=== PATIENT | female | born 1995 | race Caucasian/White ===

== ENCOUNTER 2017-01-07 20:44 | Emergency (ER) ==
[2017-01-07 20:48] VITALS: BP 106/63; TEMP 98.7; BMI 20.9
[2017-01-07] MEDS ORDERED: SOLU-MEDROL 125 MG IM STA (21:06)
[2017-01-07] MEDS ORDERED: ROBITUSSIN AC SYRUP PO STA (21:06)
[2017-01-07] MEDS ORDERED: DUONEB NEB STA (21:06)
--- NOTE | 2017-01-07 21:21 | ED.PDOC ---
General ED Provider: Dr. ALMA SOMMER Chief Complaint: Cough Stated Complaint: wheezing coughing congestion, sinus running. Time Seen by Physician: 21:19 Mode of Arrival: Walk-In Information Source: Patient Primary Care Provider: KAYLEE CHANCE Nursing and Triage Documentation Reviewed and Agree: Yes Respiratory Complaint Exam - Shortness of Air Complaint/Exam Symptoms Are: Still present Timing: Constant Initial Severity: Moderate Current Severity: Moderate Character: Reports: Dyspnea at rest Aggravating: Reports: Allergens Alleviating: Reports: None Associated Signs and Symptoms: Reports: Cough, Wheezing, Nasal congestion. Denies: Chest pain with cough, Chest pain, Fever, Chills, Diaphoresis, Dizziness , Calf pain, Calf swelling, Edema, Rapid breathing, Labored breathing, Decreased intake History of Healthcare-Acquired Pneumonia: No Pulmonary Embolism Risk Factors: Reports: None Cardiac Risk Factors: Reports: None Pseudomonas Risk Factors: Reports: None Tuberculosis Risk Factors: Reports: None Home Oxygen Use: No Recent Stress Test: No Recent Echo/LV Function: No Respiratory Distress: Mild Stridor Present: No Tracheal Deviation: No Accessory Muscle Use: No Retractions: Not Present Diminished Breath Sounds: Yes Prolonged Expiratory Phase: Yes Differential Diagnoses: Asthma, Pneumonia, Bronchitis Review of Systems - Review Of Systems Constitutional: Reports: No symptoms Eyes: Reports: No symptoms Ears, Nose, Mouth, Throat: Reports: No symptoms Respiratory: Reports: Cough, Short of air Cardiac: Reports: No symptoms GI: Reports: No symptoms : Reports: No symptoms Musculoskeletal: Reports: No symptoms Skin: Reports: No symptoms Neurological: Reports: No symptoms Endocrine: Reports: No symptoms Hematologic/Lymphatic: Reports: No symptoms All Other Systems: Reviewed and Negative Past Medical History - Past Medical History Previously Healthy: Yes Endocrine: Reports: None Cardiovascular: Reports: None Respiratory: Reports: Asthma Hematological: Reports: None Gastrointestinal: Reports: None Genitourinary: Reports: None Neuro/Psych: Reports: None, Anxiety, Depression Musculoskeletal: Reports: Back Pain Cancer: Reports: None Last Menstrual Period: 12/14 - Surgical History General Surgical History: Reports: Unknown - Family History Family History: Reports: Unknown - Social History Smoking Status: Former smoker Hx Substance Use: No Alcohol Screening: None - Immunizations Tetanus Shot up to Date: Yes Physical Exam - Physical Exam Appearance: Ill-appearing Ill-appearing: Mild Eyes: FRANCISCO, EOMI, Conjunctiva clear ENT: Ears normal, Nose normal, Oropharynx normal Respiratory: Breath sounds diminished, Wheezes Cardiovascular: RRR, Pulses normal, No rub, No murmur GI/: Soft, Nontender, No masses, Bowel sounds normal, No Organomegaly Musculoskeletal: Normal strength, ROM intact, No edema, No calf tenderness Skin: Warm, Dry, Normal color Neurological: Sensation intact, Motor intact, Reflexes intact, Cranial nerves intact, Alert, Oriented Psychiatric: Affect appropriate, Mood appropriate Interpretation - Radiology Interpretation Radiology Interpretation By: ED Physician Radiology Results: Negative Exam Interpreted: CXR Re-Evaluation - Re-Evaluation Time of Re-Evaluation: 22:02 Status: Improved Critical Care Note - Critical Care Note Total Time (mins): 0 Course - Course Orders, Labs, Meds: Orders Category Date Time Status NEBULIZER TREATMENT Stat CARDIO 01/07/17 21:07 Completed Cephalexin [Keflex] MEDS 01/07/17 22:04 Stat 500 mg PO ONCE STA Guaifenesin/Codeine Phosphate [Robitussin AC Syrup] MEDS 01/07/17 21:06 Discontinued 10 ml PO ONCE STA Ipratropium/Albuterol Neb [Duoneb] MEDS 01/07/17 21:06 Discontinued 1 vial NEB ONCE STA Methylprednisolone Sod Succ/Pf [Solu-Medrol 125 mg] MEDS 01/07/17 21:06 Discontinued 80 mg IM ONCE STA CHEST, 1V AP ONLY Stat RADS 01/07/17 21:06 Completed Medications Generic Name Dose Route Start Last Admin Trade Name Freq PRN Reason Stop Dose Admin Cephalexin 500 mg 01/07/17 22:04 Keflex PO 01/07/17 22:05 ONCE STA Discontinued Medications Generic Name Dose Route Start Last Admin Trade Name Freq PRN Reason Stop Dose Admin Albuterol/Ipratropium 1 vial 01/07/17 21:06 01/07/17 21:18 Duoneb NEB 01/07/17 21:07 1 vial ONCE STA Administration Guaifenesin/Codeine Phosphate 10 ml 01/07/17 21:06 01/07/17 21:24 Robitussin Ac Syrup PO 01/07/17 21:07 10 ml ONCE STA Administration Methylprednisolone Sodium Succinate 80 mg 01/07/17 21:06 01/07/17 21:25 Solu-Medrol 125 Mg IM 01/07/17 21:07 80 mg ONCE STA Administration Vital Signs: Temp Pulse Resp BP Pulse Ox 01/07/17 20:45 98.7 F 107 H 20 106/63 95 Departure - Departure Time of Disposition: 22:02 Disposition: HOME SELF-CARE Discharge Problem: Asthmatic bronchitis Qualifiers: Asthma severity: mild persistent Asthma complication type: with acute exacerbation Qualifier Code: (J45.31) Mild persistent asthma with (acute) exacerbation Instructions: Bronchospasm (ED) Condition: Stable Pt referred to PMD for follow-up: Yes Additional Instructions: AVOID SMOKE EXPOSURE if not better come back needs f/u with dog sitter Prescriptions: Cephalexin [Keflex] 500 mg PO Q12HR #20 capsule Albuterol Sulfate [Ventolin Hfa] 8 gm IH TID #1 vial Guaifenesin/Codeine Phosphate [Robitussin AC Syrup] 10 ml PO Q6H #1 bottle Methylprednisolone [Medrol Dosepak] 4 mg PO DIRECTED #1 pkg Allergies/Adverse Reactions: Allergies No Known Allergies Allergy (Verified 11/12/16 23:37) Home Medications: Ambulatory Orders Albuterol Sulfate [Proair Hfa] 2 puff IH Q6H PRN #1 inhaler 03/01/16 Sertraline HCl [Zoloft] 150 mg PO DAILY 07/21/16 Diazepam [Valium] 5 mg PO BID 08/06/16 Albuterol Sulfate 0.083% Neb [Albuterol 0.083% Neb] 1 vial NEB RTQ6H #90 vial.neb 08/11/16 Budesonide/Formoterol Fumarate [Symbicort 160-4.5 Mcg Inhaler] 2 puff IH BID 07/13 Tiotropium [place] [Spiriva Respimat] 2 puff IH 1800 11/13/16 Albuterol Sulfate [Ventolin Hfa] 8 gm IH TID #1 vial 01/07/17 Cephalexin [Keflex] 500 mg PO Q12HR #20 capsule 01/07/17 Guaifenesin/Codeine Phosphate [Robitussin AC Syrup] 10 ml PO Q6H #1 bottle 01/07 Methylprednisolone [Medrol Dosepak] 4 mg PO DIRECTED #1 pkg 01/07/17 Disposition Discussed With: Patient
--- NOTE | 2017-01-07 21:50 | DI ---
EXAM: Chest one view HISTORY: Coughing COMPARISON: 11/15/2016 TECHNIQUE: Single view of the chest was performed FINDINGS: The lungs are clear. There is stable ovoid calcification in the mediastinum which has bee n seen on prior CT thorax dated 11/02/2015 from [facility] and described as a parti ally calcified retrosternal mass. There is no pleural effusion or pneumothorax. The heart is berna l in size. The mediastinal contour is normal. There are no acute abnormalities of the bones. IMPRESSION: 1. No acute cardiopulmonary process. 2. Stable calcified retrosternal mass.
[2017-01-07] MEDS ORDERED: KEFLEX PO STA (22:04)
== END 2017-01-07 22:20 | disposition home or self-care (01) ==
LOC: ED 20:44
DX: J45.31 Mild persistent asthma with (acute) exacerbation (principal); Z79.899 Other long term (current) drug therapy
CPT/HCPCS: 94640; 96372; 99283

== ENCOUNTER 2017-01-09 17:21 | Emergency (ER) ==
[2017-01-09 17:26] VITALS: BP 119/76; TEMP 96.7; BMI 19.5
[2017-01-09] MEDS ORDERED: DUONEB NEB STA ×2 (17:39→18:45)
[2017-01-09 18:03] LABS: BASOPHILS # (AUTO) 0.1 K/uL (0-0.2); BASOPHILS % (AUTO) 0.7 % (0.0-3.0); EOSINOPHILS % (AUTO) 12.5 % (0.0-7.0); HEMATOCRIT 45.5 % (37.0-47.0); HEMOGLOBIN 15.3 g/dl (12.0-16.0); IMMATURE GRANULOCYTE % (AUTO) 0.3 % (0.0-5.0); LYMPHOCYTES # (AUTO) 1.9 K/uL (0.60-3.4); LYMPHOCYTES % (AUTO) 25.4 (10.0-50.0); MEAN CORPUSCULAR HEMOGLOBIN 28.4 pg (27.0-31.0); MEAN CORPUSCULAR HGB CONC 33.6 (31.8-35.4); MEAN CORPUSCULAR VOLUME 84.4 fl (81.0-99.0); MONOCYTES # (AUTO) 0.6 K/uL (0.4-2.0); MONOCYTES % (AUTO) 7.7 (0-10); NEUTROPHILS # (AUTO) 4.1 K/ul (2.0-6.9); NEUTROPHILS % (AUTO) 53.4; PLATELET COUNT 214 10^3/uL (140-440); RED BLOOD COUNT 5.39 10^6/ul (4.20-5.40); WHITE BLOOD COUNT 7.63 K/ul (4.6-10.2)
--- NOTE | 2017-01-09 18:09 | ED.PDOC ---
General ED Provider: Dr. MAYNOR HOGUE JR Chief Complaint: Shortness of Air Stated Complaint: HAS BEEN TAKING MEDICATIONS GIVEN TO HER IN THIS ER SINCE TUESDAY...IS OUT OF MEDICATIONS FOR BREATHING BUT STILL HAVING DIFFICULTY BREATHING. [ End ]short of air today 96.7 110 24 97% 119/76. Cephalexin [ Keflex] 500 mg PO Q12HR #20 capsule. Albuterol Sulfate [Ventolin Hfa] 8 gm IH TID #1 vial. Guaifenesin/Codeine Phosphate [Robitussin AC Syrup] 10 ml PO Q6H # 1 bottle. Methylprednisolone [Medrol Dosepak] 4 mg PO DIRECTED #1 pkg Time Seen by Physician: 18:09 Mode of Arrival: Walk-In Information Source: Patient Exam Limitations: No limitations Primary Care Provider: KAYLEE CHANCE Nursing and Triage Documentation Reviewed and Agree: No Review of Systems - Review Of Systems Constitutional: Reports: Fever, Malaise, Weakness Eyes: Reports: No symptoms Ears, Nose, Mouth, Throat: Reports: No symptoms Respiratory: Reports: Cough, Short of air, Wheezing Cardiac: Reports: No symptoms GI: Reports: No symptoms : Reports: No symptoms Musculoskeletal: Reports: No symptoms Skin: Reports: No symptoms Neurological: Reports: No symptoms Endocrine: Reports: No symptoms Hematologic/Lymphatic: Reports: No symptoms All Other Systems: Other Past Medical History - Past Medical History Previously Healthy: Yes Endocrine: Reports: None Cardiovascular: Reports: None Respiratory: Reports: Asthma Hematological: Reports: None Gastrointestinal: Reports: None Genitourinary: Reports: None Neuro/Psych: Reports: None, Anxiety, Depression Musculoskeletal: Reports: Back Pain Cancer: Reports: None Last Menstrual Period: 01/03/17 - Surgical History General Surgical History: Reports: Other (skin graft on right leg), Unknown - Family History Family History: Reports: Unknown - Social History Smoking Status: Former smoker Hx Substance Use: No Alcohol Screening: None - Immunizations Tetanus Shot up to Date: Yes Physical Exam - Physical Exam Appearance: Well-appearing, Thin Ill-appearing: Moderate Pain Distress: Moderate Eyes: FRANCISCO, EOMI, Conjunctiva clear ENT: Ears normal, Nose normal, Oropharynx normal Neck: Supple Respiratory: Breath sounds diminished, Wheezes Cardiovascular: RRR, Pulses normal, No rub, No murmur GI/: Soft, Nontender, No masses, Bowel sounds normal, No Organomegaly Musculoskeletal: Normal strength, ROM intact, No edema, No calf tenderness Skin: Warm, Dry, Normal color Neurological: Sensation intact, Motor intact, Reflexes intact, Cranial nerves intact, Alert, Oriented Psychiatric: Affect appropriate, Mood appropriate Critical Care Note - Critical Care Note Total Time (mins): 5 Course - Course Hematology/Chemistry: 01/09/17 17:55 01/09/17 17:55 Orders, Labs, Meds: Lab Review 01/09/17 17:55 WBC 7.63 RBC 5.39 Hgb 15.3 Hct 45.5 MCV 84.4 MCH 28.4 MCHC 33.6 RDW Coeff of Janae 13.5 Plt Count 214 Immature Gran % (Auto) 0.3 Neut % (Auto) 53.4 Lymph % (Auto) 25.4 [place] % (Auto) 7.7 Eos % (Auto) 12.5 H Baso % (Auto) 0.7 Immature Gran # (Auto) 0.0 Neut # 4.1 Lymph # 1.9 [place] # 0.6 Eos # 1.0 H Baso # 0.1 D-Dimer 0.25 Sodium 142 Potassium 3.8 Chloride 105 Carbon Dioxide 29 Anion Gap 11.8 BUN 9 Creatinine 0.89 Estimated GFR (MDRD) 79.00 BUN/Creatinine Ratio 10.11 Glucose 84 Calcium 9.5 Total Bilirubin 0.63 AST 17 ALT 15 Alkaline Phosphatase 83 Total Protein 6.7 Albumin 3.9 Globulin 2.8 Albumin/Globulin Ratio 1.39 Orders Category Date Time Status NEBULIZER TREATMENT Stat CARDIO 01/09/17 17:39 Completed NEBULIZER TREATMENT Stat CARDIO 01/09/17 18:45 Ordered CBC W/ AUTO DIFF Stat LAB 01/09/17 17:55 Completed COMPREHENSIVE METABOLIC PANEL Stat LAB 01/09/17 17:55 Completed D-DIMER Stat LAB 01/09/17 17:55 Completed Ipratropium/Albuterol Neb [Duoneb] MEDS 01/09/17 17:39 Discontinued 1 vial NEB ONCE STA Ipratropium/Albuterol Neb [Duoneb] MEDS 01/09/17 18:45 Discontinued 1 vial NEB ONCE STA CHEST, 2 VIEWS PA & LAT Stat RADS 01/09/17 17:52 Taken Medications Discontinued Medications Generic Name Dose Route Start Last Admin Trade Name Freq PRN Reason Stop Dose Admin Albuterol/Ipratropium 1 vial 01/09/17 17:39 01/09/17 17:42 Duoneb NEB 01/09/17 17:40 1 vial ONCE STA Administration Albuterol/Ipratropium 1 vial 01/09/17 18:45 Duoneb NEB 01/09/17 18:46 ONCE STA Vital Signs: Temp Pulse Resp BP Pulse Ox 01/09/17 17:21 96.7 F L 110 H 24 119/76 97 Departure - Departure Time of Disposition: 18:53 Disposition: HOME SELF-CARE Discharge Problem: Extrinsic asthma with exacerbation Instructions: Asthma (ED), Reactive Airways Disease (ED), Albuterol (By breathing) Condition: Good Pt referred to PMD for follow-up: Yes Additional Instructions: finish Keflex, if fever , productive cough or increasing shortness of breath switch to Bactrim antibiotic Albuterol one puff four times a day for three days then only as needed prednisone taper- begin at high dose and decrease(if any worsening may resume at effective dose) recheck PMD call in morning for follow up Prescriptions: Sulfamethoxazole/Trimethoprim [Bactrim Ds 800/160 mg] 1 tab PO Q12HR #14 tablet Albuterol Sulfate [Proair Hfa] 2 puff IH Q6H PRN #1 inhaler PRN Reason: Wheezing Prednisone 20 mg PO DIRECTED #50 tablet Allergies/Adverse Reactions: Allergies No Known Allergies Allergy (Verified 11/12/16 23:37) Home Medications: Ambulatory Orders Sertraline HCl [Zoloft] 150 mg PO DAILY 07/21/16 Diazepam [Valium] 5 mg PO BID 08/06/16 Budesonide/Formoterol Fumarate [Symbicort 160-4.5 Mcg Inhaler] 2 puff IH BID 07/13 Tiotropium [place] [Spiriva Respimat] 2 puff IH 1800 11/13/16 Cephalexin [Keflex] 500 mg PO Q12HR #20 capsule 01/07/17 Guaifenesin/Codeine Phosphate [Robitussin AC Syrup] 10 ml PO Q6H #1 bottle 01/07 Albuterol Sulfate [Proair Hfa] 2 puff IH Q6H PRN #1 inhaler 01/09/17 Prednisone 20 mg PO DIRECTED #50 tablet 01/09/17 Sulfamethoxazole/Trimethoprim [Bactrim Ds 800/160 mg] 1 tab PO Q12HR #14 tablet 01/09/17
[2017-01-09 18:22] LABS: ALBUMIN 3.9 g/dL (3.4-5.0); ALBUMIN/GLOBULIN RATIO 1.39; ANION GAP 11.8; BILIRUBIN,TOTAL 0.63 mg/dL (0.00-1.20); BUN/CREATININE RATIO 10.11; CALCIUM 9.5 mg/dL (8.2-10.2); CREATININE 0.89 mg/dL (0.60-1.30); POTASSIUM 3.8 mmol/L (3.5-5.10); TOTAL PROTEIN 6.7 g/dL (6.4-8.2)
--- NOTE | 2017-01-10 03:36 | DI ---
EXAM: Chest, two views, 01/09/2017 HISTORY: Cough and wheezing COMPARISON: 01/07/2017 FINDINGS / IMPRESSION: Cardiomediastinal contours appear within normal limits. No pulmonary consol idation, effusion or pneumothorax No acute cardiopulmonary process.
== END 2017-01-09 19:21 | disposition home or self-care (01) ==
LOC: ED 17:21
DX: J45.901 Unspecified asthma with (acute) exacerbation (principal)
CPT/HCPCS: 36415; 80053; 85025; 85379; 94640; 99283

== ENCOUNTER 2017-01-16 14:36 | Emergency (ER) ==
[2017-01-16 14:41] VITALS: BP 117/76; TEMP 103; BMI 19.4
[2017-01-16 15:45] LABS: BASOPHILS % (AUTO) 0.2 % (0.0-3.0); EOSINOPHILS % (AUTO) 0.2 % (0.0-7.0); HEMATOCRIT 40.5 % (37.0-47.0); HEMOGLOBIN 14.2 g/dl (12.0-16.0); IMMATURE GRANULOCYTE % (AUTO) 0.6 % (0.0-5.0); LYMPHOCYTES # (AUTO) 1.3 K/uL (0.60-3.4); LYMPHOCYTES % (AUTO) 8.2 (10.0-50.0); MEAN CORPUSCULAR HEMOGLOBIN 28.7 pg (27.0-31.0); MEAN CORPUSCULAR HGB CONC 35.1 (31.8-35.4); MONOCYTES # (AUTO) 1.3 K/uL (0.4-2.0); MONOCYTES % (AUTO) 7.8 (0-10); NEUTROPHILS # (AUTO) 13.5 K/ul (2.0-6.9); PLATELET COUNT 256 10^3/uL (140-440); RED BLOOD COUNT 4.94 10^6/ul (4.20-5.40)
[2017-01-16 15:53] LABS: BILIRUBIN,URINE 1+ (NEGATIVE); KETONES,URINE 1+ (NEGATIVE); LEUKOCYTE ESTERASE ,URINE Negative (NEGATIVE); NITRITE,URINE Negative (NEGATIVE); PH,URINE 5.5 (5-9); PROTEIN,URINE 2+ (NEGATIVE); URINE, BLOOD Negative (NEGATIVE)
[2017-01-16 15:56] LABS: ADD URINE MICROSCOPIC YES; BACTERIA,URINE 1+ (NOT PRESENT)
[2017-01-16 16:04] LABS: ALBUMIN 3.3 g/dL (3.4-5.0); ALBUMIN/GLOBULIN RATIO 0.8; ANION GAP 17.4; BILIRUBIN,TOTAL 0.6 mg/dL (0.00-1.20); BUN/CREATININE RATIO 6.81; CALCIUM 9.3 mg/dL (8.2-10.2); CREATININE 0.88 mg/dL (0.60-1.30); POTASSIUM 3.4 mmol/L (3.5-5.10); TOTAL PROTEIN 7.4 g/dL (6.4-8.2)
--- NOTE | 2017-01-16 16:07 | DI ---
EXAM: Two views of the chest. History: Fever and cough. Comparison: Chest radiograph 01/09/2017 Findings: Heart size is normal. Right middle lobe infiltrate. No pleural fluid and no pneumothora x. No acute osseous abnormalities. Impression: Right middle lobe pneumonia.
[2017-01-16 16:09] LABS: FLU INTERNAL QC INTERNAL QC VALID; RAPID FLU A NEGATIVE (NEGATIVE); RAPID FLU B NEGATIVE (NEGATIVE)
[2017-01-16 16:38] LABS: AMYLASE 20 U/L (25-115); LIPASE 10 U/L (8-78)
[2017-01-16] MEDS ORDERED: ROCEPHIN 1 GM in SODIUM CHLORIDE 50 ML IV STA (17:26)
--- NOTE | 2017-01-16 17:26 | ED.PDOC ---
General ED Provider: Dr. FRANCISCA MORAES Chief Complaint: Nausea/Vomiting Stated Complaint: nausea vomiting Time Seen by Physician: 15:00 Mode of Arrival: Walk-In Information Source: Patient Exam Limitations: No limitations Primary Care Provider: KAYLEE CHANCE Nursing and Triage Documentation Reviewed and Agree: Yes Respiratory Complaint Exam - Respiratory Complaint/Exam Onset/Duration: cough flu like symptoms Symptoms Are: Still present Timing: Intermittent Initial Severity: Moderate Current Severity: Mild Location: Throat Character: Reports: Non-productive cough Aggravating: Reports: None Alleviating: Reports: None Associated Signs and Symptoms: Denies: Rapid breathing, Dyspnea, Fever, Chills, Chest pain, Pleuritic chest pain, Wheezing, Hemoptysis, Dizziness, Calf pain, Calf swelling, Edema, URI, Nasal congestion, Hoarseness, Sinus discomfort, Vomiting, Sore throat, Weight loss, Decreased oral intake, Increased thirst, Increased appetite, Increased urination Related History: Reports: Similar episode History of Healthcare-Acquired Pneumonia: No Related Surgical History: Reports: None Pulmonary Embolism Risk Factors: None Cardiac Risk Factors: Reports: None Pseudomonas Risk Factors: Reports: None Tuberculosis Risk Factors: Reports: None Status Asthmaticus Risk Factors: Reports: None Home Oxygen Use: No Recent Stress Test: No Recent Echo/LV Function: No Current Antibiotic Use: No Current Asthma Medication Use: No Respiratory Distress: None Inadequate Respiratory Effort: No Dysphagia Present: No Stridor Present: No JVD Present: No Accessory Muscle Use: No Retractions: Not Present Sinus Tenderness: None Grunting Respirations: No Kussmaul Respirations: No Differential Diagnoses: Pneumonia, Bronchitis Review of Systems - Review Of Systems Constitutional: Reports: Chills, Malaise Eyes: Reports: No symptoms Ears, Nose, Mouth, Throat: Reports: No symptoms Respiratory: Reports: Cough Cardiac: Reports: No symptoms GI: Reports: No symptoms : Reports: No symptoms Musculoskeletal: Reports: No symptoms Skin: Reports: No symptoms Neurological: Reports: No symptoms Endocrine: Reports: No symptoms Hematologic/Lymphatic: Reports: No symptoms All Other Systems: Reviewed and Negative Past Medical History - Past Medical History Previously Healthy: Yes Endocrine: Reports: None Cardiovascular: Reports: None Respiratory: Reports: Asthma Hematological: Reports: None Gastrointestinal: Reports: None Genitourinary: Reports: None Neuro/Psych: Reports: None, Anxiety, Depression Musculoskeletal: Reports: Back Pain Cancer: Reports: None Last Menstrual Period: last week - Surgical History General Surgical History: Reports: Other (skin graft on right leg), Unknown - Family History Family History: Reports: Unknown - Social History Smoking Status: Former smoker Hx Substance Use: No Alcohol Screening: None Physical Exam - Physical Exam Appearance: Well-appearing, No pain distress, Well-nourished Eyes: FRANCISCO, EOMI, Conjunctiva clear ENT: Ears normal, Nose normal, Oropharynx normal Respiratory: Rhonchi Cardiovascular: RRR, Pulses normal, No rub, No murmur GI/: Soft, Nontender, No masses, Bowel sounds normal, No Organomegaly Musculoskeletal: Normal strength, ROM intact, No edema, No calf tenderness Skin: Warm, Dry, Normal color Neurological: Sensation intact, Motor intact, Reflexes intact, Cranial nerves intact, Alert, Oriented Psychiatric: Affect appropriate, Mood appropriate Interpretation - Radiology Interpretation Radiology Interpretation By: Radiologist Radiology Results: Positive (RLLL) Critical Care Note - Critical Care Note Total Time (mins): 0 Course - Course Hematology/Chemistry: 01/16/17 15:30 01/16/17 15:30 Orders, Labs, Meds: Lab Review 01/16/17 01/16/17 15:30 15:45 WBC 16.30 H RBC 4.94 Hgb 14.2 Hct 40.5 MCV 82.0 MCH 28.7 MCHC 35.1 RDW Coeff of Janae 13.0 Plt Count 256 Immature Gran % (Auto) 0.6 Neut % (Auto) 83.0 Lymph % (Auto) 8.2 L [place] % (Auto) 7.8 Eos % (Auto) 0.2 Baso % (Auto) 0.2 Immature Gran # (Auto) 0.1 Neut # 13.5 H Lymph # 1.3 [place] # 1.3 Eos # 0.0 Baso # 0.0 Sodium 135 L Potassium 3.4 L Chloride 100 Carbon Dioxide 21 Anion Gap 17.4 BUN 6 L Creatinine 0.88 Estimated GFR (MDRD) 80.00 BUN/Creatinine Ratio 6.81 Glucose 117 H Calcium 9.3 Total Bilirubin 0.60 AST 14 L ALT 10 L Alkaline Phosphatase 97 Total Protein 7.4 Albumin 3.3 L Globulin 4.1 Albumin/Globulin Ratio 0.80 Amylase 20 L Lipase 10 Urine Color Dark Urine Clarity Clear Urine pH 5.5 Ur Specific [place] 1.025 Urine Protein 2+ Urine Glucose (UA) Trace Urine Ketones 1+ Urine Blood Negative Urine Nitrite Negative Urine Bilirubin 1+ Urine Urobilinogen >=8.0 Ur Leukocyte Esterase Negative Urine Microscopic WBC 0-2 Ur Squamous Epith Cells 5-10 Urine Bacteria 1+ Urine Mucus 2+ Influenza A (Rapid) Negative Influenza B (Rapid) Negative Orders Category Date Time Status AMYLASE Stat LAB 01/16/17 15:30 Completed BLOOD CULTURE Stat LAB 01/16/17 15:30 Received CBC W/ AUTO DIFF Stat LAB 01/16/17 15:30 Completed COMPREHENSIVE METABOLIC PANEL Stat LAB 01/16/17 15:30 Completed LIPASE Stat LAB 01/16/17 15:30 Completed MOLECULAR GROUP A STREP Stat LAB 01/16/17 15:45 Results RAPID FLU A/B Stat LAB 01/16/17 15:45 Completed STREP SCREEN Stat LAB 01/16/17 15:45 Results URINALYSIS C & S IF INDICATED Stat LAB 01/16/17 15:45 Completed URINE CULTURE Stat LAB 01/16/17 15:45 Received CHEST, 2 VIEWS PA & LAT Stat RADS 01/16/17 15:25 Completed Vital Signs: Temp Pulse Resp BP Pulse Ox 01/16/17 14:36 103 F H 122 H 20 117/76 94 L Departure - Departure Time of Disposition: 17:25 Disposition: HOME SELF-CARE Discharge Problem: Nausea, Vomiting, RLL pneumonia Instructions: Pneumonitis (ED) Condition: Good Pt referred to PMD for follow-up: No Additional Instructions: Please call your Family Physician as soon as possible to schedule a follow-up appointment. Allergies/Adverse Reactions: Allergies No Known Allergies Allergy (Verified 01/16/17 14:44) Home Medications: Ambulatory Orders Sertraline HCl [Zoloft] 150 mg PO DAILY 07/21/16 Diazepam [Valium] 5 mg PO BID 08/06/16 Budesonide/Formoterol Fumarate [Symbicort 160-4.5 Mcg Inhaler] 2 puff IH BID 07/13 Tiotropium [place] [Spiriva Respimat] 2 puff IH 1800 11/13/16 Albuterol Sulfate [Proair Hfa] 2 puff IH Q6H PRN #1 inhaler 01/09/17 Transfer Form Completed: Yes Disposition Discussed With: Patient
[2017-01-16] MEDS ORDERED: ROCEPHIN ONE (17:28)
[2017-01-16] MEDS ORDERED: SOLU-MEDROL 125 MG IVP STA (17:30)
[2017-01-16] MEDS ORDERED: SOLU-MEDROL 40 MG ONE (17:31)
[2017-01-16 17:32] LABS: URINE PREGNANCY INTERNAL QC INTERNAL QC VALID
== END 2017-01-16 18:11 | disposition short-term general hospital (02) ==
LOC: ED 14:36
DX: J18.9 Pneumonia, unspecified organism (principal); R11.2 Nausea with vomiting, unspecified; Z79.899 Other long term (current) drug therapy
CPT/HCPCS: 36415; 80053; 81001; 81025; 82150; 83690; 85025; 87040; 87086; 87651; 87804; 87880; 96365; 96375; 99285

== ENCOUNTER 2017-01-16 18:06 | Outpatient (CLI) ==
[2017-01-16 14:41] VITALS: BMI 19.4
== END 2017-01-16 18:07 ==
LOC: AMBL 18:06
PROVIDERS: ATTEND Internal Medicine
DX: J18.9 Pneumonia, unspecified organism (principal); R06.02 Shortness of breath; R00.0 Tachycardia, unspecified

== ENCOUNTER 2017-03-18 16:32 | Outpatient (CLI) | END 2017-03-18 16:33 | LOC: AMBL 16:32 | PROVIDERS: ATTEND Internal Medicine | DX: M54.5 Low back pain (principal); R51 Headache; R06.9 Unspecified abnormalities of breathing; V47.5XXA Car driver injured in collision with fixed or stationary object in traffic accident, initial encounter ==

== ENCOUNTER 2017-04-01 12:14 | Outpatient (CLI) ==
--- NOTE | 2017-04-01 17:26 | MRI ---
EXAM: Brain MRI without contrast. HISTORY: Headache. COMPARISON: Head CT 01/17/[address] 11/02/2015. TECHNIQUE: Multiplanar, multisequence MR images were acquired of the brain without contrast. FINDINGS: The midline structures are central. The right cerebellar tonsil is slightly larger than the left and extends 2.8 mm below the foramen magnum which is within normal variation. The ventricl es and sulci are normal in size and configuration. There are no abnormal extra-axial fluid collecti ons. The brain parenchyma has no diffusion restriction to suggest acute hypoperfusion or infarction. The re are no abnormal T2 hyperintensities or foci of dark gradient echo signal. The corpus callosum is normal in configuration. The pituitary gland is unremarkable. There are no intraorbital masses. A slightly disconjugate gaze is present. There is mild mucosal th ickening in the frontal sinus and minor mucosal thickening scattered in the ethmoid air cells bilate rally. There is a small mucous retention cyst or polyp along the anterior wall of the right maxilla ry sinus. Mild adenoidal hypertrophy is present with a tiny nasopharyngeal submucosal cyst. There i s mild leftward nasal septal deviation with a small left nasal septal spur. Middle ears and mastoid s are unremarkable. Flow voids are present in the major intracranial arteries. 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 Dural venous sinuses are patent. IMPRESSION: 1. No intracranial mass, hemorrhage or acute cerebral infarct. 2. Minor sinus disease and small mucous retention cyst or polyp right maxillary sinus.
== END 2017-04-01 12:15 | disposition home or self-care (01) ==
LOC: RAD 12:14
PROVIDERS: ATTEND Family Medicine
DX: G44.319 Acute post-traumatic headache, not intractable (principal); V89.2XXA Person injured in unspecified motor-vehicle accident, traffic, initial encounter

== ENCOUNTER 2017-04-08 18:55 | Emergency (ER) | payer OTHER ==
[2017-04-08] MEDS ORDERED: SODIUM CHLORIDE 1,000 ML IV STA ×2 (18:59→20:40)
[2017-04-08] MEDS ORDERED: DEMEROL 25 MG/ML SYRINGE IVP STA (18:59)
[2017-04-08] MEDS ORDERED: ZOFRAN 4 MG/2 ML IVP STA (18:59)
[2017-04-08 19:03] VITALS: BP 136/87; TEMP 96.5; BMI 19.1
[2017-04-08 19:22] LABS: BASOPHILS # (AUTO) 0.1 K/uL (0-0.2); BASOPHILS % (AUTO) 0.4 % (0.0-3.0); EOSINOPHILS # (AUTO) 0.7 K/ul (0.0-0.7); EOSINOPHILS % (AUTO) 6.4 % (0.0-7.0); HEMATOCRIT 46.6 % (37.0-47.0); HEMOGLOBIN 15.6 g/dl (12.0-16.0); IMMATURE GRANULOCYTE % (AUTO) 0.5 % (0.0-5.0); LYMPHOCYTES % (AUTO) 17.8 (10.0-50.0); MEAN CORPUSCULAR HEMOGLOBIN 29.2 pg (27.0-31.0); MEAN CORPUSCULAR HGB CONC 33.5 (31.8-35.4); MEAN CORPUSCULAR VOLUME 87.3 fl (81.0-99.0); MONOCYTES # (AUTO) 0.9 K/uL (0.4-2.0); MONOCYTES % (AUTO) 7.6 (0-10); NEUTROPHILS # (AUTO) 7.7 K/ul (2.0-6.9); NEUTROPHILS % (AUTO) 67.3; PLATELET COUNT 250 10^3/uL (140-440); RED BLOOD COUNT 5.34 10^6/ul (4.20-5.40); WHITE BLOOD COUNT 11.47 K/ul (4.6-10.2)
[2017-04-08 19:37] LABS: FLU INTERNAL QC INTERNAL QC VALID; RAPID FLU A NEGATIVE (NEGATIVE); RAPID FLU B NEGATIVE (NEGATIVE); SERUM PREGNANCY INTERNAL QC INTERNAL QC VALID
[2017-04-08 19:38] LABS: ALBUMIN 4.5 g/dL (3.4-5.0); ALBUMIN/GLOBULIN RATIO 1.41; BILIRUBIN,TOTAL 0.31 mg/dL (0.00-1.20); BUN/CREATININE RATIO 9.57; CALCIUM 9.4 mg/dL (8.2-10.2); CREATININE 0.94 mg/dL (0.60-1.30); TOTAL PROTEIN 7.7 g/dL (6.4-8.2)
[2017-04-08 19:56] LABS: ERYTHROCYTE SEDIMENTATION RATE 5 mm/hr (0-20); ESR INTERNAL QC INTERNAL QC VALID
--- NOTE | 2017-04-08 20:03 | CT ---
EXAM: CT abdomen pelvis without intravenous contrast 04/08/2017. Sagittal and coronal reformatted images obtained HISTORY: Abdominal pain and vomiting COMPARISON: 05/28/2016 FINDINGS: The liver and gallbladder show no acute process. The adrenal glands, kidneys, spleen and pancreas show no acute abnormality. Diffusely fluid-filled small bowel and colon. This may relate to enteritis/ileus and diarrhea. Correlate clinically. Technically limited examination due to the lack of intravenous and lack of oral contrast. Partially visualized appendix appears within normal limits. No free air or free fluid. No gross abnormality of the urinary bladder. IMPRESSION: 1. Diffusely fluid-filled small bowel and colon. This may relate to enteritis/ileus and diarrhea. Correlate clinically. 2. Technically limited examination due to the lack of intravenous and oral contrast.
[2017-04-08 21:04] LABS: BILIRUBIN,URINE Negative (NEGATIVE); KETONES,URINE Trace (NEGATIVE); LEUKOCYTE ESTERASE ,URINE Negative (NEGATIVE); NITRITE,URINE Negative (NEGATIVE); PROTEIN,URINE Negative (NEGATIVE); URINE, BLOOD Negative (NEGATIVE)
[2017-04-08 21:07] LABS: ADD URINE MICROSCOPIC YES; BACTERIA,URINE 1+ (NOT PRESENT)
--- NOTE | 2017-04-08 21:42 | ED.PDOC ---
General ED Provider: Dr. KAYLEE CHANCE-ER Chief Complaint: Abdominal Pain Stated Complaint: im puking and having diarrhea Time Seen by Physician: 18:55 Mode of Arrival: Walk-In Information Source: Patient Exam Limitations: No limitations Primary Care Provider: KAYLEE CHANCE Nursing and Triage Documentation Reviewed and Agree: Yes GI Complaint Exam - Vomiting/Diarrhea Complaint/Exam Onset/Duration: 24hrs Symptoms Are: Still present Episodes of Vomiting over last 24 Hours: 8 Episodes of Diarrhea Over Last 24 Hours: 6 Initial Severity: Mild Current Severity: Moderate Character of Vomiting: Reports: Bilious Character of Diarrhea: Reports: Watery Aggravating: Reports: None Alleviating: Reports: None Associated Signs and Symptoms: Reports: Abdominal pain Recent Positive Test: No Use of Oral Contraceptives: No Use of Depoprovera: No Compliant With Contraceptive Use: No Non-GI Risk Factors: Reports: None Surgical Obstruction Risk Factors: Reports: None Abdominal Findings: Present: None [place] Respirations Present: No Differential Diagnoses: Dehydration, , UTI Review of Systems - Review Of Systems Constitutional: Reports: No symptoms Eyes: Reports: No symptoms Ears, Nose, Mouth, Throat: Reports: No symptoms Respiratory: Reports: No symptoms Cardiac: Reports: No symptoms GI: Reports: Diarrhea, Nausea, Vomiting : Reports: No symptoms Musculoskeletal: Reports: No symptoms Skin: Reports: No symptoms Neurological: Reports: No symptoms Endocrine: Reports: No symptoms Hematologic/Lymphatic: Reports: No symptoms All Other Systems: Reviewed and Negative Past Medical History - Past Medical History Previously Healthy: Yes Endocrine: Reports: None Cardiovascular: Reports: None Respiratory: Reports: Asthma Hematological: Reports: None Gastrointestinal: Reports: None Genitourinary: Reports: None Neuro/Psych: Reports: None, Anxiety, Depression Musculoskeletal: Reports: Back Pain Cancer: Reports: None Last Menstrual Period: 03/27/17 - Surgical History General Surgical History: Reports: Other (skin graft on right leg), Unknown - Family History Family History: Reports: Unknown - Social History Smoking Status: Current every day smoker, Light tobacco smoker Hx Substance Use: No Alcohol Screening: None Lives: With family Physical Exam - Physical Exam Appearance: Well-appearing, No pain distress, Well-nourished Eyes: FRANCISCO, EOMI, Conjunctiva clear ENT: Ears normal, Nose normal, Oropharynx normal Neck: Supple Respiratory: Airway patent, Breath sounds clear, Breath sounds equal, Respirations nonlabored Cardiovascular: RRR, Pulses normal, No rub, No murmur GI/: Soft, Nontender, No masses, Bowel sounds normal, No Organomegaly Musculoskeletal: Normal strength, ROM intact, No edema, No calf tenderness Skin: Warm Neurological: Sensation intact Psychiatric: Affect appropriate Interpretation - Radiology Interpretation Radiology Interpretation By: Radiologist Radiology Results: Negative Exam Interpreted: CT Scan Re-Evaluation - Re-Evaluation Time of Re-Evaluation: 21:41 Status: Improved Vital Signs Stable: Yes Pain Level: 0 Appearance: NAD Lungs: Clear Skin: Warm and Dry Neuro: Alert and Oriented X3 CV: RRR Critical Care Note - Critical Care Note Total Time (mins): 0 Course - Course Hematology/Chemistry: 04/08/17 19:15 04/08/17 19:15 Orders, Labs, Meds: Lab Review 04/08/17 04/08/17 19:15 20:58 WBC 11.47 H RBC 5.34 Hgb 15.6 Hct 46.6 MCV 87.3 MCH 29.2 MCHC 33.5 RDW Coeff of Janae 13.9 Plt Count 250 Immature Gran % (Auto) 0.5 Neut % (Auto) 67.3 Lymph % (Auto) 17.8 [place] % (Auto) 7.6 Eos % (Auto) 6.4 Baso % (Auto) 0.4 Immature Gran # (Auto) 0.1 Neut # 7.7 H Lymph # 2.0 [place] # 0.9 Eos # 0.7 Baso # 0.1 ESR 5 Sodium 140 Potassium 4.0 Chloride 108 H Carbon Dioxide 24 Anion Gap 12.0 BUN 9 Creatinine 0.94 Estimated GFR (MDRD) 74.00 BUN/Creatinine Ratio 9.57 Glucose 98 Calcium 9.4 Total Bilirubin 0.31 AST 17 ALT 15 Alkaline Phosphatase 101 H Total Protein 7.7 Albumin 4.5 Globulin 3.2 Albumin/Globulin Ratio 1.41 Amylase 51 Lipase 28 Serum , Qual Negative Urine Color Yellow Urine Clarity Cloudy Urine pH 5.0 Ur Specific [place] 1.025 Urine Protein Negative Urine Glucose (UA) Negative Urine Ketones Trace Urine Blood Negative Urine Nitrite Negative Urine Bilirubin Negative Urine Urobilinogen 0.2 Ur Leukocyte Esterase Negative Ur Squamous Epith Cells 10-20 Amorphous Sediment 2+ Urine Bacteria 1+ Influenza A (Rapid) Negative Influenza B (Rapid) Negative Orders Category Date Time Status ED IV/MEDIPORT/POWERPORT .ONCE EMERGENCY 04/08/17 18:59 Active AMYLASE Stat LAB 04/08/17 19:15 Completed CBC W/ AUTO DIFF Stat LAB 04/08/17 19:15 Completed COMPREHENSIVE METABOLIC PANEL Stat LAB 04/08/17 19:15 Completed ESR Stat LAB 04/08/17 19:15 Completed LIPASE Stat LAB 04/08/17 19:15 Completed MOLECULAR GROUP A STREP Stat LAB 04/08/17 19:15 Results RAPID FLU A/B Stat LAB 04/08/17 19:15 Completed SERUM Stat LAB 04/08/17 19:15 Completed STREP SCREEN Stat LAB 04/08/17 19:15 Results URINALYSIS C & S IF INDICATED Stat LAB 04/08/17 20:58 Completed URINE CULTURE Stat LAB 04/08/17 20:58 Received 0.9 % Sodium Chloride [Saline Flush] MEDS 04/08/17 18:59 Ordered 1 syr IVF PRN PRN Meperidine HCl/Pf [Demerol 25 mg/ml Syringe] MEDS 04/08/17 18:59 Discontinued 25 mg IVP ONCE STA Ondansetron HCl/Pf [Zofran 4 mg/2 ml] MEDS 04/08/17 18:59 Discontinued 4 mg IVP ONCE STA Sodium Chloride 0.9% [Sodium Chloride] 1,000 ml MEDS 04/08/17 18:59 Discontinued IV BOLUS Sodium Chloride 0.9% [Sodium Chloride] 1,000 ml MEDS 04/08/17 20:[address] ABDOMEN/PELVIS WO CONTRAST Stat RADS 04/08/17 18:59 Completed Medications Generic Name Dose Route Start Last Admin Trade Name Freq PRN Reason Stop Dose Admin Sodium Chloride 1,000 mls @ 1,000 mls/hr 04/08/17 20:40 04/08/17 20:35 Sodium Chloride IV 04/08/17 21:39 1,000 mls/hr BOLUS STA Administration Sodium Chloride 1 syr 04/08/17 18:59 Saline Flush IVF PRN PRN To flush IV Discontinued Medications Generic Name Dose Route Start Last Admin Trade Name Freq PRN Reason Stop Dose Admin Sodium Chloride 1,000 mls @ 1,000 mls/hr 04/08/17 18:59 04/08/17 19:27 Sodium Chloride IV 04/08/17 19:58 1,000 mls/hr BOLUS STA Administration Meperidine HCl 25 mg 04/08/17 18:59 04/08/17 19:29 Demerol 25 Mg/Ml Syringe IVP 04/08/17 19:00 25 mg ONCE STA Administration Ondansetron HCl 4 mg 04/08/17 18:59 04/08/17 19:27 Zofran 4 Mg/2 Ml IVP 04/08/17 19:00 4 mg ONCE STA Administration Vital Signs: Temp Pulse Resp BP Pulse Ox 04/08/17 18:55 96.5 F L 95 H 20 136/87 98 Departure - Departure Time of Disposition: 21:42 Disposition: HOME SELF-CARE Discharge Problem: Enteritis Instructions: Enteritis (ED) Condition: Good Pt referred to PMD for follow-up: Yes Additional Instructions: zofran 4mg q 4hrs prn #4--adam liquids --recheck if not improving Allergies/Adverse Reactions: Allergies No Known Allergies Allergy (Verified 04/08/17 19:03) Home Medications: Ambulatory Orders Sertraline HCl [Zoloft] 150 mg PO DAILY 07/21/16 Diazepam [Valium] 5 mg PO BID 08/06/16 Budesonide/Formoterol Fumarate [Symbicort 160-4.5 Mcg Inhaler] 2 puff IH BID 07/13 Tiotropium [place] [Spiriva Respimat] 2 puff IH 1800 11/13/16 Albuterol Sulfate [Proair Hfa] 2 puff IH Q6H PRN #1 inhaler 01/09/17 Disposition Discussed With: Patient
== END 2017-04-08 21:48 | disposition home or self-care (01) ==
LOC: ED 18:55
DX: K52.9 Noninfective gastroenteritis and colitis, unspecified (principal); F17.210 Nicotine dependence, cigarettes, uncomplicated
CPT/HCPCS: 36415; 80053; 81001; 82150; 83690; 84703; 85025; 85651; 87086; 87651; 87804; 87880; 96361; 96374; 96375; 99283

== ENCOUNTER 2017-04-13 13:35 | Outpatient (RCR) ==
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
--- NOTE | 2017-04-18 08:41 | RS.CXNS ---
Date of scheduled appointment: 04/18/17 Type: Cancel Reason for Cancel/NS: Unknown
--- NOTE | 2017-04-20 08:37 | RS.CXNS ---
Date of scheduled appointment: 04/20/17 Type: No Show (unknown)
--- NOTE | 2017-04-26 12:48 | RS.QUICKDC ---
Discharge from PT Date of Discharge: 04/26/17 Number of Visits: 1 Reason for Discharge: Came for eval,then [facility] for next two appts.
== END 2017-04-27 ==
PROVIDERS: ATTEND Family Medicine
DX: M54.2 Cervicalgia (principal); M54.5 Low back pain; G89.29 Other chronic pain; R51 Headache

== ENCOUNTER 2017-05-11 09:57 | Outpatient (CLI) | payer OTHER ==
[2017-05-11 10:13] VITALS: BMI 19.5
== END 2017-05-11 09:58 | disposition critical access hospital (66) ==
LOC: AMBL 09:57
PROVIDERS: ATTEND Family Medicine
DX: R06.2 Wheezing (principal); J45.909 Unspecified asthma, uncomplicated

== ENCOUNTER 2017-05-11 10:05 | Emergency (ER) | payer OTHER ==
[2017-05-11 10:13] VITALS: TEMP 97.6; BMI 19.5
[2017-05-11] MEDS ORDERED: XOPENEX 1.25 MG NEB STA (10:27)
[2017-05-11] MEDS ORDERED: SOLU-MEDROL 125 MG IVP STA (10:27)
[2017-05-11 10:36] VITALS: BP 112/81
[2017-05-11 10:52] LABS: ABG BASE EXCESS -2 (-2.0-2.0); ABG PCO2 31.9 mmHg (35-45); ABG PH 7.452 (7.35-7.45)
[2017-05-11 10:53] LABS: ABG HCO3 22.3 (22.0-26.0); ABG TCO2 23 (22.0-28.0)
[2017-05-11 10:54] LABS: BASOPHILS # (AUTO) 0.1 K/uL (0-0.2); BASOPHILS % (AUTO) 0.6 % (0.0-3.0); EOSINOPHILS # (AUTO) 0.7 K/ul (0.0-0.7); EOSINOPHILS % (AUTO) 8.4 % (0.0-7.0); HEMATOCRIT 46.7 % (37.0-47.0); HEMOGLOBIN 15.9 g/dl (12.0-16.0); IMMATURE GRANULOCYTE % (AUTO) 0.2 % (0.0-5.0); LYMPHOCYTES # (AUTO) 2.4 K/uL (0.60-3.4); LYMPHOCYTES % (AUTO) 29.5 (10.0-50.0); MEAN CORPUSCULAR HEMOGLOBIN 29.1 pg (27.0-31.0); MEAN CORPUSCULAR VOLUME 85.4 fl (81.0-99.0); MONOCYTES # (AUTO) 0.6 K/uL (0.4-2.0); MONOCYTES % (AUTO) 7.8 (0-10); NEUTROPHILS # (AUTO) 4.3 K/ul (2.0-6.9); NEUTROPHILS % (AUTO) 53.5; PLATELET COUNT 250 10^3/uL (140-440); RED BLOOD COUNT 5.47 10^6/ul (4.20-5.40); WHITE BLOOD COUNT 8.09 K/ul (4.6-10.2)
[2017-05-11 11:06] LABS: SERUM PREGNANCY INTERNAL QC INTERNAL QC VALID
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
[2017-05-11 11:17] LABS: ALBUMIN 4.2 g/dL (3.4-5.0); ALBUMIN/GLOBULIN RATIO 1.4; ANION GAP 12.7; BILIRUBIN,TOTAL 0.65 mg/dL (0.00-1.20); BUN/CREATININE RATIO 11.76; CALCIUM 9.6 mg/dL (8.2-10.2); CREATININE 1.02 mg/dL (0.60-1.30); POTASSIUM 3.7 mmol/L (3.5-5.10); TOTAL PROTEIN 7.2 g/dL (6.4-8.2)
--- NOTE | 2017-05-11 11:35 | DI ---
Exam: Single x-ray of the chest. Comparison: 01/16/2017. Reason for exam: Dyspnea. FINDINGS: No pneumothorax, pleural effusion, or focal consolidation. The cardiac silhouette is not enlarged. The imaged osseous structures are unremarkable without acute fracture. The previously de scribed right middle lobe infiltrate is not seen on today's exam. Impression: No acute cardiopulmonary process.
== END 2017-05-11 12:02 | disposition home or self-care (01) ==
LOC: ED 10:05
DX: J45.901 Unspecified asthma with (acute) exacerbation (principal)
CPT/HCPCS: 36415; 80053; 82803; 83880; 84703; 85025; 85379; 87040; 93005; 93010; 94640; 96374; 99283

== ENCOUNTER 2017-10-16 13:50 | Emergency (ER) ==
[2017-10-16 13:54] VITALS: BP 120/75; TEMP 98.2; BMI 21.9
[2017-10-16] MEDS ORDERED: LIDOCAINE HCL 4% 5 ML AMP INJ STA (15:34)
[2017-10-16] MEDS ORDERED: CLEOCIN PO STA (16:17)
--- NOTE | 2017-10-16 16:18 | ED.PDOC ---
General ED Provider: Dr. LINDA LEVIN Chief Complaint: Bite Stated Complaint: left upper thigh abscess for few days with severe pain. Time Seen by Physician: 15:00 Mode of Arrival: Walk-In Information Source: Patient Exam Limitations: No limitations Primary Care Provider: KAYLEE CHANCE Nursing and Triage Documentation Reviewed and Agree: Yes Skin Complaint Exam - Skin/Soft Tissue Complaint/Exam Onset/Duration: 3 days Symptoms Are: Still present Timing: Constant Initial Severity: Moderate Current Severity: Severe Location: Left anterior upper thigh close to groin. 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, Prior MRSA/VRE Related Surgical History: Reports: None Skin Findings: Present: Fluctuant mass Joint Tenderness Present: No Differential Diagnoses: Abscess, Cellulitis, Infection, MRSA Review of Systems - Review Of Systems Constitutional: Reports: No symptoms Eyes: Reports: No symptoms Ears, Nose, Mouth, Throat: Reports: No symptoms Respiratory: Reports: No symptoms Cardiac: Reports: No symptoms GI: Reports: No symptoms : Reports: No symptoms Musculoskeletal: Reports: No symptoms Skin: Reports: Lesions (Left upper thigh) Neurological: Reports: No symptoms Endocrine: Reports: No symptoms Hematologic/Lymphatic: Reports: No symptoms All Other Systems: Reviewed and Negative Past Medical History - Past Medical History Previously Healthy: Yes Endocrine: Reports: None Cardiovascular: Reports: None Respiratory: Reports: Asthma Hematological: Reports: None Gastrointestinal: Reports: None Genitourinary: Reports: None Neuro/Psych: Reports: None, Anxiety, Depression Musculoskeletal: Reports: Back Pain Cancer: Reports: None Last Menstrual Period: last week Other Pertinent Past Medical History: MRSA - Surgical History General Surgical History: Reports: Other (skin graft on right leg) - Family History Family History: Reports: Unknown - Social History Smoking Status: Former smoker, Light tobacco smoker Hx Substance Use: No Alcohol Screening: None Physical Exam - Physical Exam Appearance: Ill-appearing Ill-appearing: Mild Pain Distress: Severe Neck: Supple Respiratory: Airway patent, Breath sounds clear, Breath sounds equal, Respirations nonlabored Cardiovascular: RRR, Pulses normal, No rub, No murmur Skin: Warm, Dry Psychiatric: Anxious Procedures - Incision and Drainage Site: left upper thigh Instrument Used: 11 Blade I & D Procedure: Yes: Betadine Prep, Packing placed Lidocaine Used: Yes (4 % ) Type of Drainage: Present: Pus, Blood Irrigated: Yes Progress: Tolerated well Critical Care Note - Critical Care Note Total Time (mins): 0 Course - Course Orders, Labs, Meds: Orders Category Date Time Status Orthostatic [ED ORTHOSTATIC VITAL SIGNS] .ONCE EMERGENCY 10/16/17 15:48 Inactive WOUND CULTURE Stat LAB 10/16/17 16:30 Received Clindamycin HCl [Cleocin] MEDS 10/16/17 16:17 Discontinued 300 mg PO ONCE STA Lidocaine HCl/Pf [Lidocaine HCl 4% 5 ml Amp] MEDS 10/16/17 15:34 Discontinued 5 ml INJ ONCE STA Medications Discontinued Medications Generic Name Dose Route Start Last Admin Trade Name Freq PRN Reason Stop Dose Admin Clindamycin HCl 300 mg 10/16/17 16:17 10/16/17 16:34 Cleocin PO 10/16/17 16:18 300 mg ONCE STA Administration Lidocaine HCl 5 ml 10/16/17 15:34 10/16/17 15:40 Lidocaine Hcl 4% 5 Ml Amp INJ 10/16/17 15:35 5 ml ONCE STA Administration Vital Signs: Temp Pulse Resp BP Pulse Ox 10/16/17 13:50 98.2 F 95 H 20 120/75 98 Departure - Departure Time of Disposition: 16:16 Disposition: HOME SELF-CARE Discharge Problem: Abscess Instructions: Abscess (ED) Condition: Fair Pt referred to PMD for follow-up: Yes Additional Instructions: Take medications as prescribed Follow up wit PCP in in 2 days to have packing changed. Prescriptions: Clindamycin HCl 300 mg PO TID #30 capsule Ibuprofen [Motrin] 600 mg PO Q6H PRN #30 tablet PRN Reason: Analgesia Mupirocin Calcium [Bactroban Nasal] 1 gm NS BEDTIME #60 oint...g. Allergies/Adverse Reactions: Allergies No Known Allergies Allergy (Verified 10/16/17 13:55) Home Medications: Ambulatory Orders Albuterol Sulfate [Proair Hfa] 2 puff IH Q6H PRN #1 inhaler 01/09/17 Clindamycin HCl 300 mg PO TID #30 capsule 10/16/17 Ibuprofen [Motrin] 600 mg PO Q6H PRN #30 tablet 10/16/17 Mupirocin Calcium [Bactroban Nasal] 1 gm NS BEDTIME #60 oint...g. 10/16/17 Disposition Discussed With: Patient, Family
== END 2017-10-16 16:34 | disposition home or self-care (01) ==
LOC: ED 13:50
DX: L02.416 Cutaneous abscess of left lower limb (principal)
CPT/HCPCS: 87070; 87186; 99283

== ENCOUNTER 2017-12-05 15:45 | Outpatient (CLI) | END 2017-12-05 15:46 | disposition home or self-care (01) | LOC: LAB 15:45 | PROVIDERS: ATTEND Nurse Practitioner Family | DX: Z86.14 Personal history of Methicillin resistant Staphylococcus aureus infection (principal) | CPT/HCPCS: 87081 ==

== ENCOUNTER 2017-12-07 08:04 | Emergency (ER) ==
[2017-12-07 08:09] VITALS: BP 115/72; TEMP 98.4; BMI 21.7
[2017-12-07] MEDS ORDERED: PREDNISONE PO STA (08:16)
[2017-12-07] MEDS ORDERED: DUONEB NEB STA (08:28)
--- NOTE | 2017-12-07 09:16 | DI ---
EXAM: Two views of the chest. History: Cough. Comparison: Chest radiograph 05/11/2017 Findings: Heart size is normal. No focal consolidation. No appreciable pleural fluid and no pneumo thorax. Calcified mediastinal lymph node again noted. No acute osseous abnormalities. Impression: No acute cardiopulmonary process
--- NOTE | 2017-12-07 09:18 | ED.PDOC ---
General ED Provider: Dr. FRANCISCA MORAES Chief Complaint: Respiratory Complaint Stated Complaint: cough, flu like symp Time Seen by Physician: 08:10 (seen with nursing staff) Mode of Arrival: Walk-In Information Source: Patient Exam Limitations: No limitations Primary Care Provider: KAYLEE CHANCE Nursing and Triage Documentation Reviewed and Agree: Yes Reviewed sepsis parameters & appropriate labs ordered?: Yes System Inflammatory Response Syndrome: Not Applicable Sepsis Protocol: For patient's 13 years and over: Temp is 96.8 and below OR 101 and greater Pulse >90 BPM Resp >20/minute Acutely Altered Mental Status Are patient's symptoms suggestive of a new infection, such as: -Pneumonia -Skin, Soft Tissue -Endocarditis -UTI -Bone, Joint Infection -Implantable Device -Acute Abdominal Infection -Wound Infection -Meningitis -Blood Stream Catheter Infection -Unknown System Inflammatory Response Syndrome: Not Applicable Respiratory Complaint Exam - Respiratory Complaint/Exam Onset/Duration: 1 day Symptoms Are: Still present Timing: Intermittent Initial Severity: Mild Current Severity: Mild Location: Nose, Throat, Chest Character: Reports: Non-productive cough Aggravating: Reports: None Alleviating: Reports: Bronchodilators, Spontaneous resolution Associated Signs and Symptoms: Reports: URI, Nasal congestion. Denies: Rapid breathing, Dyspnea, Fever, Chills, Chest pain, Pleuritic chest pain, Wheezing, Hemoptysis, Dizziness, Calf pain, Calf swelling, Edema, Hoarseness, Sinus discomfort, Vomiting, Sore throat, Weight loss, Decreased oral intake, Increased thirst, Increased appetite, Increased urination Related History: Reports: Similar episode History of Healthcare-Acquired Pneumonia: No Related Surgical History: Reports: None Pulmonary Embolism Risk Factors: Smoking Cardiac Risk Factors: Reports: Smoking Pseudomonas Risk Factors: Reports: None Tuberculosis Risk Factors: Reports: None Status Asthmaticus Risk Factors: Reports: None Home Oxygen Use: No Recent Stress Test: No Recent Echo/LV Function: No Current Antibiotic Use: No Current Asthma Medication Use: No Respiratory Distress: None Inadequate Respiratory Effort: No Dysphagia Present: No Stridor Present: No JVD Present: No Accessory Muscle Use: No Retractions: Not Present Diminished Breath Sounds: No Sinus Tenderness: None Grunting Respirations: No Kussmaul Respirations: No Differential Diagnoses: Asthma, Pneumonia, Bronchitis Review of Systems - Review Of Systems Constitutional: Reports: Chills, Malaise Eyes: Reports: No symptoms Ears, Nose, Mouth, Throat: Reports: Throat pain Respiratory: Reports: Cough, Wheezing Cardiac: Reports: No symptoms GI: Reports: No symptoms : Reports: No symptoms Musculoskeletal: Reports: No symptoms Skin: Reports: No symptoms Neurological: Reports: No symptoms Endocrine: Reports: No symptoms Hematologic/Lymphatic: Reports: No symptoms All Other Systems: Reviewed and Negative Past Medical History - Past Medical History Previously Healthy: Yes Endocrine: Reports: None Cardiovascular: Reports: None Respiratory: Reports: Asthma Hematological: Reports: None Gastrointestinal: Reports: None Genitourinary: Reports: None Neuro/Psych: Reports: None, Anxiety, Depression Musculoskeletal: Reports: Back Pain Cancer: Reports: None Last Menstrual Period: finished last tuesday Other Pertinent Past Medical History: MRSA - Surgical History General Surgical History: Reports: Other (skin graft on right leg) - Family History Family History: Reports: Unknown - Social History Smoking Status: Current every day smoker, Light tobacco smoker Hx Substance Use: No Alcohol Screening: None Physical Exam - Physical Exam Appearance: Well-appearing, No pain distress, Well-nourished Eyes: FRANCISCO, EOMI, Conjunctiva clear ENT: Erythema Respiratory: Wheezes Cardiovascular: RRR, Pulses normal, No rub, No murmur GI/: Soft, Nontender, No masses, Bowel sounds normal, No Organomegaly Musculoskeletal: Normal strength, ROM intact, No edema, No calf tenderness Skin: Warm, Dry, Normal color Neurological: Sensation intact, Motor intact, Reflexes intact, Cranial nerves intact, Alert, Oriented Psychiatric: Affect appropriate, Mood appropriate Interpretation - Radiology Interpretation Radiology Interpretation By: Radiologist Radiology Results: No acute changes Critical Care Note - Critical Care Note Total Time (mins): 0 Course - Course Orders, Labs, Meds: Lab Review 12/07/17 12/07/17 08:30 08:30 Urine Test Negative Influenza A (Rapid) Negative by naat Influenza B (Rapid) Negative by naat Orders Category Date Time Status NEBULIZER TREATMENT Stat CARDIO 12/07/17 08:28 Completed MOLECULAR FLU A/B Stat LAB 12/07/17 08:30 Completed MOLECULAR GROUP A STREP Stat LAB 12/07/17 08:30 Completed URINE Stat LAB 12/07/17 08:30 Completed Ipratropium/Albuterol Neb [Duoneb] MEDS 12/07/17 08:28 Discontinued 1 vial NEB ONCE STA Prednisone MEDS 12/07/17 08:16 Discontinued 40 mg PO ONCE STA CHEST, 2 VIEWS PA & LAT Stat RADS 12/07/17 08:16 Taken Medications Discontinued Medications Generic Name Dose Route Start Last Admin Trade Name Jennifer PRN Reason Stop Dose Admin Albuterol/Ipratropium 1 vial 12/07/17 08:28 12/07/17 08:39 Duoneb NEB 12/07/17 08:29 1 vial ONCE STA Administration Prednisone 40 mg 12/07/17 08:16 12/07/17 08:56 Prednisone PO 12/07/17 08:17 40 mg ONCE STA Administration Vital Signs: Temp Pulse Resp BP Pulse Ox 12/07/17 08:06 98.4 F 119 H 20 115/72 97 Departure - Departure Time of Disposition: :18 Disposition: HOME SELF-CARE Discharge Problem: Viral syndrome Asthma attack Qualifiers: Asthma severity: mild Asthma persistence: intermittent Qualified Code(s): J45.21 - Mild intermittent asthma with (acute) exacerbation Instructions: Viral Syndrome (ED) Condition: Good Pt referred to PMD for follow-up: Yes Additional Instructions: Please call your Family Physician as soon as possible to schedule a follow-up appointment. Prescriptions: Azithromycin [Zithromax] 250 mg PO DIRECTED #6 tablet Allergies/Adverse Reactions: Allergies No Known Allergies Allergy (Verified 12/07/17 08:11) Home Medications: Ambulatory Orders Albuterol Sulfate [Proair Hfa] 2 puff IH Q6H PRN #1 inhaler 01/09/17 Albuterol Sulfate 0.083% Neb [Albuterol 0.083% Neb] 1 vial NEB RTQ4H PRN Azithromycin [Zithromax] 250 mg PO DIRECTED #6 tablet 12/07/17
== END 2017-12-07 09:32 | disposition home or self-care (01) ==
LOC: ED 08:04
DX: B34.9 Viral infection, unspecified (principal); J45.21 Mild intermittent asthma with (acute) exacerbation; F17.210 Nicotine dependence, cigarettes, uncomplicated
CPT/HCPCS: 81025; 87502; 87651; 94640; 99283

== ENCOUNTER 2019-02-11 23:15 | Emergency (ER) ==
[2019-02-11] MEDS ORDERED: ATIVAN PO STA (23:17)
[2019-02-11] MEDS ORDERED: ALBUTEROL 0.083% NEB NEB STA (23:18)
[2019-02-11 23:36] VITALS: BP 123/76; TEMP 100.2; BMI 20.9
--- NOTE | 2019-02-12 00:09 | ED.PDOC ---
General ED Provider: Dr. LINDA LEVIN Chief Complaint: Non-specific Complaint Stated Complaint: Patient is a 24 year old female who comes to the ER with symptoms of anxiety. States that when she gets anxious, her asthma gets worse too. states that she Feels pressure in chest area when attempts deep breath. States that her anxiety has increased since has been off anxiety/depression meds. Time Seen by Physician: 23:30 Mode of Arrival: Carried Information Source: Patient Primary Care Provider: KAYLEE CHANCE Nursing and Triage Documentation Reviewed and Agree: Yes Does patient meet sepsis criteria?: No System Inflammatory Response Syndrome: Not Applicable Sepsis Protocol: For patient's 13 years and over: Temp is 96.8 and below OR 101 and greater Pulse >90 BPM Resp >20/minute Acutely Altered Mental Status Are patient's symptoms suggestive of a new infection, such as: -Pneumonia -Skin, Soft Tissue -Endocarditis -UTI -Bone, Joint Infection -Implantable Device -Acute Abdominal Infection -Wound Infection -Meningitis -Blood Stream Catheter Infection -Unknown Review of Systems - Review Of Systems Constitutional: Reports: No symptoms Eyes: Reports: No symptoms Ears, Nose, Mouth, Throat: Reports: No symptoms Respiratory: Reports: Wheezing Cardiac: Reports: No symptoms GI: Reports: No symptoms : Reports: No symptoms Musculoskeletal: Reports: No symptoms Skin: Reports: No symptoms Neurological: Reports: No symptoms Endocrine: Reports: No symptoms Hematologic/Lymphatic: Reports: No symptoms All Other Systems: Reviewed and Negative Past Medical History - Past Medical History Previously Healthy: Yes Endocrine: Reports: None Cardiovascular: Reports: None Respiratory: Reports: Asthma Hematological: Reports: None Gastrointestinal: Reports: None Genitourinary: Reports: None Neuro/Psych: Reports: None, Anxiety, Depression, PTSD Musculoskeletal: Reports: Back Pain Cancer: Reports: None Last Menstrual Period: 1 week ago Other Pertinent Past Medical History: MRSA - Surgical History General Surgical History: Reports: Other (skin graft on right leg) - Family History Family History: Reports: Unknown - Social History Smoking Status: Current every day smoker, Light tobacco smoker Hx Substance Use: No Alcohol Screening: None - Immunizations Tetanus Shot up to Date: Yes Physical Exam - Physical Exam Appearance: Well-appearing, No pain distress, Well-nourished Eyes: FRANCISCO, EOMI, Conjunctiva clear ENT: Ears normal, Nose normal, Oropharynx normal Respiratory: Wheezes Cardiovascular: RRR, Pulses normal, No rub, No murmur GI/: Soft, Nontender, No masses, Bowel sounds normal, No Organomegaly Musculoskeletal: Normal strength, ROM intact, No edema, No calf tenderness Skin: Warm, Dry, Normal color Neurological: Sensation intact, Motor intact, Reflexes intact, Cranial nerves intact, Alert, Oriented Psychiatric: Anxious Re-Evaluation - Re-Evaluation Time of Re-Evaluation: 00:07 Status: Improved Vital Signs Stable: Yes Pain Level: none Appearance: NAD Skin: Warm and Dry Neuro: Alert and Oriented X3 Critical Care Note - Critical Care Note Total Time (mins): 0 Course - Course Orders, Labs, Meds: Orders Category Date Time Status NEBULIZER TREATMENT Stat CARDIO 02/11/19 23:18 Completed Albuterol Sulfate 0.083% Neb [Albuterol 0.083% Neb] MEDS 02/11/19 23:18 Discontinued 1 vial NEB ONCE STA Lorazepam [Ativan] MEDS 02/11/19 23:17 Discontinued 2 mg PO ONCE STA Medications Discontinued Medications Generic Name Dose Route Start Last Admin Trade Name Freq PRN Reason Stop Dose Admin Albuterol Sulfate 1 vial 02/11/19 23:18 02/11/19 23:25 Albuterol 0.083% Neb NEB 02/11/19 23:19 1 vial ONCE STA Administration Lorazepam 2 mg 02/11/19 23:17 02/11/19 23:21 Ativan PO 02/11/19 23:18 2 mg ONCE STA Administration Vital Signs: Temp Pulse Resp BP Pulse Ox 02/11/19 23:25 100.2 F H 129 H 28 H 123/76 100 Departure - Departure Time of Disposition: 00:06 Disposition: HOME SELF-CARE Discharge Problem: Panic attack as reaction to stress, Asthma attack Instructions: Asthma (ED), Panic Attack (ED) Condition: Stable Pt referred to PMD for follow-up: Yes IPMP verified?: No Additional Instructions: TAKE MEDICATIONS PRESCRIBED FOLLOW UP WITH PCP IN 3 DAYS Prescriptions: Lorazepam [Ativan] 0.5 mg PO TID PRN #15 tablet PRN Reason: Anxiety Allergies/Adverse Reactions: Allergies No Known Allergies Allergy (Verified 12/07/17 08:11) Home Medications: Ambulatory Orders Albuterol Sulfate [Proair Hfa] 2 puff IH Q6H PRN #1 inhaler 02/12/17 Albuterol Sulfate 0.083% Neb [Albuterol 0.083% Neb] 1 vial NEB RTQ4H PRN Lorazepam [Ativan] 0.5 mg PO TID PRN #15 tablet 02/12/19 Disposition Discussed With: Patient, Family
== END 2019-02-12 00:19 | disposition home or self-care (01) ==
LOC: ED 23:15
DX: F41.9 Anxiety disorder, unspecified (principal); R07.89 Other chest pain; R06.2 Wheezing; F43.0 Acute stress reaction; J45.909 Unspecified asthma, uncomplicated
CPT/HCPCS: 94640; 99283

== ENCOUNTER 2019-07-22 00:30 | Emergency (ER) ==
[2019-07-22 00:43] VITALS: BP 123/82; TEMP 99.3; BMI 20.8
[2019-07-22] MEDS ORDERED: LACTATED RINGERS 1,000 ML IV STA (01:14)
[2019-07-22] MEDS ORDERED: ZOFRAN 4 MG/2 ML IVP STA (01:53)
[2019-07-22] MEDS ORDERED: DILAUDID 1 MG/ML SYRINGE IVP STA (01:53)
--- NOTE | 2019-07-22 02:49 | ED.PDOC ---
General ED Provider: Dr. LINDA LEVIN Chief Complaint: Abdominal Pain Stated Complaint: Patient complains of Lower abdominal pain mostly on the left. has been followed by OBGYN for possible cyst had a negative US recenlty and CT abdomen and pelvis at [facility] the 5th of this month. States it is becomig chronic and Meño barrett cannot prescribe Narcotics. Has been taking Motrin often without relief. Time Seen by Physician: 00:40 Mode of Arrival: Walk-In Information Source: Patient Primary Care Provider: HENNY BARRETT Nursing and Triage Documentation Reviewed and Agree: Yes Does patient meet sepsis criteria?: No System Inflammatory Response Syndrome: Not Applicable Sepsis Protocol: For patient's 13 years and over: Temp is 96.8 and below OR 101 and greater Pulse >90 BPM Resp >20/minute Acutely Altered Mental Status Are patient's symptoms suggestive of a new infection, such as: -Pneumonia -Skin, Soft Tissue -Endocarditis -UTI -Bone, Joint Infection -Implantable Device -Acute Abdominal Infection -Wound Infection -Meningitis -Blood Stream Catheter Infection -Unknown Review of Systems - Review Of Systems Constitutional: Reports: No symptoms Eyes: Reports: No symptoms Ears, Nose, Mouth, Throat: Reports: No symptoms Respiratory: Reports: No symptoms Cardiac: Reports: No symptoms GI: Reports: Abdominal pain, Nausea : Reports: Pain Musculoskeletal: Reports: Back pain Skin: Reports: No symptoms Neurological: Reports: Anxiety Endocrine: Reports: No symptoms Hematologic/Lymphatic: Reports: No symptoms All Other Systems: Reviewed and Negative Past Medical History - Past Medical History Previously Healthy: Yes Endocrine: Reports: None Cardiovascular: Reports: None Respiratory: Reports: Asthma Hematological: Reports: None Gastrointestinal: Reports: None Genitourinary: Reports: None Neuro/Psych: Reports: None, Anxiety, Depression, PTSD Musculoskeletal: Reports: Back Pain Cancer: Reports: None Last Menstrual Period: FEBRUARY 2019, IS ON DEPO SHOT Other Pertinent Past Medical History: MRSA - Surgical History General Surgical History: Reports: Other (skin graft on right leg) - Family History Family History: Reports: Unknown - Social History Smoking Status: Current every day smoker, Light tobacco smoker Hx Substance Use: No Alcohol Screening: None - Immunizations Tetanus Shot up to Date: Yes Physical Exam - Physical Exam Appearance: Ill-appearing, Well-nourished Ill-appearing: Moderate Pain Distress: Severe Eyes: FRANCISCO, EOMI, Conjunctiva clear ENT: Ears normal, Nose normal, Oropharynx normal Respiratory: Airway patent, Breath sounds clear, Breath sounds equal, Respirations nonlabored Cardiovascular: RRR, Pulses normal, No rub, No murmur GI/: Soft, No masses, Bowel sounds normal, No Organomegaly, Tender Musculoskeletal: Normal strength, ROM intact, No edema, No calf tenderness Skin: Warm, Dry, Normal color Neurological: Sensation intact, Motor intact, Cranial nerves intact, Alert, Oriented Psychiatric: Affect appropriate, Mood appropriate Re-Evaluation - Re-Evaluation Time of Re-Evaluation: 02:49 Status: Improved Critical Care Note - Critical Care Note Total Time (mins): 35 Course - Course Hematology/Chemistry: 07/22/19 01:14 07/22/19 01:14 Orders, Labs, Meds: Lab Review 07/22/19 07/22/19 07/22/19 01:14 01:14 01:14 WBC 8.87 RBC 4.47 Hgb 12.9 Hct 39.0 MCV 87.2 MCH 28.9 MCHC 33.1 RDW Coeff of Janae 12.8 Plt Count 182 Immature Gran % (Auto) 0.8 Neut % (Auto) 43.3 Lymph % (Auto) 40.0 Benton % (Auto) 7.4 Eos % (Auto) 7.9 H Baso % (Auto) 0.6 Immature Gran # (Auto) 0.1 Neut # (Auto) 3.8 Lymph # (Auto) 3.6 H Benton # (Auto) 0.7 Eos # (Auto) 0.7 Baso # (Auto) 0.1 Sodium 140.1 Potassium 3.63 Chloride 105.6 Carbon Dioxide 26.9 Anion Gap 11.23 BUN 17.4 H Creatinine 1.16 Estimated GFR (MDRD) 57.00 BUN/Creatinine Ratio 15.00 Glucose 76.0 Calcium 9.33 Total Bilirubin 0.31 AST 27.5 ALT 17.5 Alkaline Phosphatase 50.3 Total Protein 7.19 Albumin 4.47 Globulin 2.72 Albumin/Globulin Ratio 1.64 Amylase 56.6 Lipase 163.5 Serum , Qual Negative Urine Color Urine Clarity Urine pH Ur Specific [place] Urine Protein Urine Glucose (UA) Urine Ketones Urine Blood Urine Nitrite Urine Bilirubin Urine Urobilinogen Ur Leukocyte Esterase 07/22/19 01:20 WBC RBC Hgb Hct MCV MCH MCHC RDW Coeff of Janae Plt Count Immature Gran % (Auto) Neut % (Auto) Lymph % (Auto) Benton % (Auto) Eos % (Auto) Baso % (Auto) Immature Gran # (Auto) Neut # (Auto) Lymph # (Auto) Benton # (Auto) Eos # (Auto) Baso # (Auto) Sodium Potassium Chloride Carbon Dioxide Anion Gap BUN Creatinine Estimated GFR (MDRD) BUN/Creatinine Ratio Glucose Calcium Total Bilirubin AST ALT Alkaline Phosphatase Total Protein Albumin Globulin Albumin/Globulin Ratio Amylase Lipase Serum , Qual Urine Color Yellow Urine Clarity Clear Urine pH 6.5 Ur Specific [place] 1.020 Urine Protein Negative Urine Glucose (UA) Negative Urine Ketones Negative Urine Blood Negative Urine Nitrite Negative Urine Bilirubin Negative Urine Urobilinogen 0.2 Ur Leukocyte Esterase Negative Orders Category Date Time Status ED IV/MEDIPORT/POWERPORT .ONCE EMERGENCY 07/22/19 01:14 Active AMYLASE Stat LAB 07/22/19 01:14 Completed CBC W/ AUTO DIFF Stat LAB 07/22/19 01:14 Completed COMPREHENSIVE METABOLIC PANEL Stat LAB 07/22/19 01:14 Completed LIPASE Stat LAB 07/22/19 01:14 Completed SERUM Stat LAB 07/22/19 01:14 Completed URINALYSIS C & S IF INDICATED Stat LAB 07/22/19 01:20 Completed 0.9 % Sodium Chloride [Saline Flush] MEDS 07/22/19 01:14 Active 1 syr IVF PRN PRN Hydromorphone HCl [Dilaudid 1 mg/ml Syringe] MEDS 07/22/19 01:53 Discontinued 1 mg IVP ONCE STA Ondansetron HCl/Pf [Zofran 4 mg/2 ml] MEDS 07/22/19 01:53 Discontinued 4 mg IVP ONCE STA Ringers Lactated Solution [Lactated Ringers] 1,000 ml MEDS 07/22/19 01:14 Discontinued IV BOLUS Medications Generic Name Dose Route Start Last Admin Trade Name Freq PRN Reason Stop Dose Admin Sodium Chloride 1 syr 07/22/19 01:14 07/22/19 02:03 Saline Flush IVF 1 syr PRN PRN Administration To flush IV Discontinued Medications Generic Name Dose Route Start Last Admin Trade Name Freq PRN Reason Stop Dose Admin Hydromorphone HCl 1 mg 07/22/19 01:53 07/22/19 02:00 Dilaudid 1 Mg/Ml Syringe IVP 07/22/19 01:54 1 mg ONCE STA Administration Lactated Ringer's 1,000 mls @ 1,000 mls/hr 07/22/19 01:14 07/22/19 01:40 Lactated Ringers IV 07/22/19 02:13 1,000 mls/hr BOLUS STA Administration Ondansetron HCl 4 mg 07/22/19 01:53 07/22/19 01:58 Zofran 4 Mg/2 Ml IVP 07/22/19 01:54 4 mg ONCE STA Administration Vital Signs: Temp Pulse Resp BP Pulse Ox 07/22/19 00:32 99.3 F 94 H 18 123/82 98 Departure - Departure Time of Disposition: 02:57 Disposition: HOME SELF-CARE Discharge Problem: Abdominal pain Instructions: Abdominal Pain (ED) Condition: Stable Pt referred to PMD for follow-up: Yes IPMP verified?: No Additional Instructions: Push fluids Follow up with PCP and OBGYN in 3 days Prescriptions: Acetaminophen with Codeine [Tylenol #3 Tab] 1 tab PO Q6H #20 tablet Allergies/Adverse Reactions: Allergies ketorolac [From Toradol] Adverse Reaction (Verified 07/22/19 00:43) Vomiting Home Medications: Ambulatory Orders Albuterol Sulfate [Proair Hfa] 2 puff IH Q6H PRN #1 inhaler 01/09/17 Albuterol Sulfate 0.083% Neb [Albuterol 0.083% Neb] 1 vial NEB RTQ4H PRN Clonazepam [Klonopin] 1 mg PO BID PRN 06/18/19 Acetaminophen with Codeine [Tylenol #3 Tab] 1 tab PO Q6H #20 tablet 07/22/19 Disposition Discussed With: Patient, Family
== END 2019-07-22 03:21 | disposition home or self-care (01) ==
LOC: ED 00:30
DX: R10.30 Lower abdominal pain, unspecified (principal); F17.210 Nicotine dependence, cigarettes, uncomplicated
CPT/HCPCS: 36415; 80053; 81001; 82150; 83690; 84703; 85025; 96361; 96374; 96375; 99283